=== PATIENT | male | born 1965 | race Caucasian/White ===

== ENCOUNTER 2021-04-23 20:58 | Inpatient (IN) | payer OTHER ==
[~2021-04-23] VITALS: Ht 175.3 cm; Wt 66.0 kg
[2021-04-23 22:26] LABS: HEMOGLOBIN 15.9 gm/dL (14.0-18.0); MCHC 35.2 g/dL (28.0-37.0); MCV 87.9 fL (80.0-100.0); RBC 5.12 mil/uL (4.50-6.00); WBC 8.5 thou/uL (4.0-11.0)
[2021-04-23 22:37] LABS: CHOLESTEROL 143 mg/dL (<200); HDL CHOLESTEROL 52 mg/dL (>40); LDL CHOLESTEROL 74 mg/dL (<100); TC:HDL 2.8 Ratio (Not establshd); TRIGLYCERIDE 86 mg/dL (<150); VLDL 17 mg/dL (<40)
[2021-04-23 22:44] LABS: SERUM ASSESSMENT Clear
[2021-04-23 23:04] LABS: APTT 70.9 Seconds (24.5-32.8); INR 1.03; PROTIME 11.2 Seconds (10.5-12.1)
[2021-04-24] VITALS (14 sets, daily range): BP systolic 101–133; BP diastolic 65–96
[2021-04-24 02:56] LABS: HEMATOCRIT 44.9 % (42.0-52.0); HEMOGLOBIN 15.2 gm/dL (14.0-18.0); MCH 30.2 pg (26.0-34.0); MCHC 33.8 g/dL (28.0-37.0); MCV 89.4 fL (80.0-100.0); RBC 5.02 mil/uL (4.50-6.00); RDW 13.2 % (10.5-14.5); WBC 6.7 thou/uL (4.0-11.0)
[2021-04-24 03:16] LABS: CALCIUM 8.4 mg/dL (8.5-10.1); CREATININE 1.1 mg/dL (0.7-1.3); POTASSIUM 3.2 mmol/L (3.5-5.1)
--- NOTE | 2021-04-24 04:39 | NUR ---
PT ADMITTED TO [id number] FROM [facility], ORIENTED TO ROOM, UNIT, VSS, STATES CP IS INTERMITTENT, EKG DONE AND POSTED IN CHART, LABS DRAWN AND HEPARIN GTT STARTED, NPO FOR POSSIBLE STRESS TEST IN AM, REMINDED PT TO CALL IF CP RETURNED, WILL CON'T TO MONITOR PER PPOC.
[2021-04-24] MEDS ORDERED: ASA81BEC PO (07:32)
[2021-04-24] MEDS ORDERED: ATORVASTATIN CA80 MG PO (07:33)
[2021-04-24] MEDS ORDERED: CARVEDILOL12.5 MG PO (07:34)
[2021-04-24] MEDS ORDERED: PLAVIX 75 MG TA75 MG PO (07:34)
--- NOTE | 2021-04-24 08:32 | EKG ---
[address] [address] ELECTROCARDIOGRAM REPORT Name: JONATHAN ARCHER Room #: 200-I ADM IN M.R.#: [id number] Admission: 04/23/21 Attend Phys: Crow Rodriguez MD Discharge: Date of : 69 Report #: [id number] [facility] Test Date: 2021-04-23 Test Time: 22:03:36 Pat Name: JONATHAN ARCHER Department: Room: 200 I Gender: Director Of Anesthesia Services: SHOBHA : 1965 Requested By: Mena Sandoval Order Number: [id number] MD: David Simpson Measurements Intervals [place] Rate: 60 P: 15 [place]: 157 QRS: 54 QRSD: 86 T: 41 QT: 425 QTc: 425 Interpretive Statements Sinus rhythm no significant abnormality no previous ECG available for comparison Electronically Signed On 04-24-2021 8:32:14 ARMHOLE BASTER JUMPBASTING by David Simpson [email or web address] <ELECTRONICALLY SIGNED> By: David Simpson MD, [facility] 04/24/21 0832 2203 2203 David Simpson MD, FAC /EPI
--- NOTE | 2021-04-24 08:37 | EKG ---
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
--- NOTE | 2021-04-24 09:59 | NUR ---
Assumed care of pt this AM. Pt is NPO for testing today & possible cardiac cath. Pt requiring [employer] manager code for consent & education. This nurse used manager code & pt asked that this nurse call his sister, Tiny Friend, & sister in laws Larry & Lesley to inform of situation. Pt states that he won't sign consent until he speaks to them. chemical lab supervisor notified. Pt is A&O x4, on RA, SB/SR on the monitor. Pt denying any current chest pain. Pt on heparin gtt w/ morning APTT therapeutic. No changes made. All of pts sisters notified. Pt sisterLesley, nurse @ [facility]. All sisters in agreeance w/ cardiac cath. No other needs at this time. Frequent rounding in place.
--- NOTE | 2021-04-24 14:23 | CATHLAB ---
[facility] [address] [place] [address] INVASIVE PROCEDURE REPORT Name: JONATHAN ARCHER Room #: 200-I ADM IN M.R.#: [id number] Admission: 04/23/21 Attend Phys: Crow Rodriguez MD Discharge: Date of : 69 Report #: [id number] THIS REPORT FOR: cc: FAM - Family physician unknown FAM - Family physician unknown Dax Hilario MD ~ APPROVED REPORT Study performed: 04/24/2021 10:11:08 Patient Details Patient Status: In-Patient Room #: 200 The patient is a 55 year-old male Event Personnel Dax Hilario Graduate Nurse, Cristy Chamroro RTR Monitor, Violeta José RTR Scrub, Carrington Sorto RN dietician Performed Art Access - R femoral artery* Left Heart Cath w/or w/o Coronaries 5751716 LHC Hemostasis w/ Mynx 27282 Initial Mod Sed Same Phys/QHP Gr5y 809354 36016 Mod Sed Same Phys/QHP Ea 563027 AMY Place w/wo Plasty Single NUSRAT 741310 PTCA Single Vessel OM [id number] PCISINGLE Indication Non-STEMI , Dyspnea, Chest pain Risk Factors Hypercholesterolemia, Coronary Artery DiseaseHypertension, Tobacco History () Previous Procedures/Diagnoses Previous PCI, Previous NV Procedure Narrative The was infiltrated with 1% Lidocaine subcutaneous anesthesia. A PINNACLE 4FR Sheath #[id number] sheath was inserted into the RFA^. Coronary angiography was performed using coronary diagnostic catheters. The right coronary system was accessed and visualized with a JR4 catheter. The left coronary system was accessed and visualized with a JL5 catheter. The left ventricle was accessed and visualized with a PIGTAIL catheter. Left ventriculogram was performed in 30 degree projection. Pre-demployment femoral angiogram was performed . [facility] [address] [place] [address] INVASIVE PROCEDURE REPORT Name: JONATHAN ARCHER Room #: 200-I [facility].#: [id number] Admission: 04/23/21 Attend Phys: Crow Rodriguez MD Discharge: Date of : 69 Report #: [id number] Closure device was deployed with a 6 Fr MYNXGRIP 6/7F #[id number]. The patient tolerated the procedure well and there were no complications associated with the procedure. There was no hematoma. Intraoperative Conscious Sedation Sedation start time: 1050 Case end Time: 1157 Fentanyl 50 mcg Versed 1 mg Fluoro Time: 14.48 minutes Dose: DAP 1158.90 cGycm2 1655 mGy Contrast Type and Amount: Omnipaque 270 ml Coronary Angiography The patient's coronary anatomy is right dominant. Diagnostic Cath Left Main The left main artery is a large-caliber vessel, patent with no flow-limiting lesions. The LAD is a moderate-sized caliber vessel, traverses the anterior wall and wraps around the apex. LAD There is mild to moderate diffuse disease in the proximal segment, 30 to 40%. Diagonal 1 This is a small caliber vessel, with a moderate ostial stenosis. Diagonal 2 This is a small to modest sized caliber vessel, patent with no flow-limiting lesions. Circumflex The left circumflex artery is a moderate-sized caliber vessel with mild disease in the proximal and distal segments, 30%. OM1 This is a small to moderate-sized caliber vessel with a patent stent in the proximal/mid segment with mild restenosis. Just before the stent, there is a subtotal occlusion of the proximal segment. OM2 This is a moderate-sized caliber vessel, patent with no flow-limiting lesions. Right Coronary The RCA is a dominant vessel. There are patent stents in the proximal and distal segments with minimal restenosis. R PDA This is a small to moderate-sized caliber vessel, patent with no flow-limiting lesions. RPLV This is a small to moderate-sized caliber vessel with a severe occlusion of the proximal segment, 90%. Left Ventriculography The left ventricle is normal in size with normal contractility. The left ventricular ejection fraction is estimated to be 50-55%. Left ventricular wall motion abnormalities [place] [address] INVASIVE PROCEDURE REPORT Name: JONATHAN ARCHER Taty Room #: 200-I ADM IN M.R.#: [id number] Admission: 04/23/21 Attend Phys: Crow Rodriguez MD Discharge: Date of : 69 Report #: [id number] hypokinesis of the distal inferior segment. Hemodynamics The left ventricular pressure is 137/2 mmHg with a mean of mmHg. The left ventricular end diastolic pressure is 13 mmHg. PCI Technique Lesion Percutaneous coronary intervention was performed on the first right posterior lateral segment. The lesion stenosis prior to intervention was 95% with EUGENE 3 flow. A VISTA 6FR JR 4 #[id number] Guide Catheter was used to engage the ostium. A Luge Wire .014 x 182CM #[id number] Interventional Guidewire was used to cross the lesion. BALLOON DILATION A Balloon catheter TREK OTW 2.25 X 12 #[id number] was inserted and inflated up to 8.00atm for 13seconds. Additional Inflation: 8.00atm for 9seconds. STENT DEPLOYMENT A drug-eluting stent RESOLUTE DAYRON OTW 2.25 X 18 #[id number] was inserted and inflated up to 12.00atm for 16seconds. Final angiography reveals 0 % stenosis with EUGENE 3 flow. PCI Technique Lesion 2 Percutaneous Coronary Intervention was performed on the first obtuse marginal branch segment. The lesion stenosis prior to intervention was 99% with EUGENE 2 flow. A VISTA 6FR XB 4 #[id number] Guide Catheter was used to engage the ostium. A Luge Wire .014 x 182CM #[id number] Interventional Guidewire was used to cross the lesion. Balloon Dilation A Balloon catheter MINI TREK OTW 2.0 X 12 #[id number] was inserted and inflated up to 8.00atm for 10seconds. Additional Inflation: 12.00atm for 24seconds. Post Stent Deployment Balloon Dilation A Balloon catheter Euphora NC RX 2.25 x 12 #[id number] was inserted and inflated up to 6.00atm for 9seconds. Additional Inflation: 14.00atm for 23seconds. Final angiography reveals 30 % stenosis with EUGENE 3 flow. Conclusion 1. PCI performed with placement of a drug-eluting stent into the [facility] [address] [place] [address] INVASIVE PROCEDURE REPORT Name: JONATHAN ARCHER Room #: 200-I ADM IN M.R.#: [id number] Admission: 04/23/21 Attend Phys: Crow Rodriguez MD Discharge: Date of : 69 Report #: [id number] severe stenosis in the proximal segment of the right posterior lateral branch. 2. PCI performed with balloon angioplasty involving the subtotal occlusion in the ostial/proximal segment of the first obtuse marginal artery, a small to moderate-sized caliber vessel. 3. There are patent stents in the proximal and distal segments of the RCA. 4. There is mild to moderate diffuse disease in the proximal LAD. 5. There is normal LV systolic function with subtle hypokinesis of the distal inferior segment. 6. Recommend dual antiplatelet therapy and aggressive risk factor management. <ELECTRONICALLY SIGNED> By: Dax Hilario MD 04/24/21 1422 21 142 Dax Hilario MD /INF
--- NOTE | 2021-04-24 14:49 | EKG ---
[place] [address] [facility] [place] [address] ELECTROCARDIOGRAM REPORT Name: JONATHAN ARCHER Room #: 200-I ADM IN M.R.#: [id number] Admission: 04/23/21 Attend Phys: Crow Rodriguez MD Discharge: Date of : 69 Report #: [id number] [facility] Test Date: 2021-04-24 Test Time: 13:07:36 Pat Name: JONATHAN ARCHER Department: Room: 200 I Gender: M Striker Out: : 1965 Requested By: Dax Hilario Order Number: [id number] : Rodney Brown Measurements Intervals [place] Rate: 64 P: -3 [place]: 135 QRS: 54 QRSD: 82 T: 72 QT: 417 QTc: 431 Interpretive Statements Sinus rhythm ST elev, probable normal early repol pattern Compared to ECG 04/24/2021 07:32:17 ST (T wave) deviation now present Electronically Signed On 04-24-2021 14:49:28 COFFEE SUPERVISOR by Rodney Brown [email or web address] <ELECTRONICALLY SIGNED> By: Rodney Brown MD, [facility] 04/24/21 1449 06 06 Rodney Brown MD, FACC /EPI
--- NOTE | 2021-04-24 15:30 | 2DMMODE ---
[facility] [place] [address] [place] [address] 2 D/M-MODE ECHOCARDIOGRAM Name: JONATHAN ARCHER Room #: 200-I ADM IN M.R.#: [id number] Admission: 04/23/21 Attend Phys: Crow Rodriguez MD Discharge: Date of : 69 Report #: [id number] THIS REPORT FOR: cc: FAM - Family physician unknown FAM - Family physician unknown Rodney Brown MD [facility] ~ APPROVED REPORT Study performed: 04/24/2021 14:53:15 EXAM: Comprehensive 2D, Doppler, and color-flow Echocardiogram Patient Location: Bedside Room #: 200 Status: routine BSA: 1.80 HR: 64 bpm BP: 116/81 mmHg Rhythm: NSR Other Information Study Quality: Good Indications Chest Pain 2D Dimensions RVDd: 33.98 mm IVSd: 11.21 (7-11mm) LVOT Diam: 22.84 (18-24mm) LVDd: 40.33 mm PWd: 10.59 (7-11mm) Ascending Ao: 29.15 (22-36mm) LVDs: 28.83 (25-40mm) Left Atrium: 30.34 (27-40mm) Aortic Root: 25.10 mm IVC: 14.00 mm Volumes Left Atrial Volume (Systole) Single Plane 4CH: 13.65 mL Single Plane 2CH: 22.71 mL LA ESV Index: 12.00 mL/m2 Aortic Valve AoV Peak Chet.: 1.86 m/s AO Peak Gr.: 13.87 mmHg LVOT Max P.50 mmHg LVOT Max V: 1.06 m/s RAÚL Vmax: 2.33 cm2 [facility] [address] [address] 2 D/M-MODE ECHOCARDIOGRAM Name: JONATHAN ARCHER Room #: 200-I [facility]#: [id number] Admission: 04/23/21 Attend Phys: Crow Rodriguez MD Discharge: Date of : 69 Report #: [id number] Mitral Valve E/A Ratio: 0.9 MV Decel. Time: 214.42 ms MV E Max Chet.: 0.57 m/s MV A Chet.: 0.66 m/s MV PHT: 62.18 ms IVRT: 152.25 ms Pulmonary Valve PV Peak Chet.: 0.99 m/s PV Peak Gr.: 3.92 mmHg Pulmonary Vein P Vein S: 0.40 m/s P Vein A: 0.21 m/s P Vein D: 0.32 m/s P Vein A Dur.: 129.2 msec P Vein S/D Ratio: 1.25 Left Ventricle The left ventricle is normal size. There is normal LV segmental wall motion. There is normal left ventricular wall thickness. Left ventricular systolic function is normal. The left ventricular ejection fraction is within the normal range. LVEF is 55-60%. Grade I - abnormal relaxation pattern. Right Ventricle The right ventricle is normal size. The right ventricular systolic function is normal. Atria The left atrium size is normal. The right atrium size is normal. Aortic Valve The aortic valve is normal in structure. No aortic regurgitation is present. There is no aortic valvular stenosis. Mitral Valve The mitral valve is normal in structure. There is no mitral valve regurgitation noted. No evidence of mitral valve stenosis. Tricuspid Valve The tricuspid valve is normal in structure. There is no tricuspid valve regurgitation noted. Pulmonic Valve The pulmonary valve is normal in structure. There is no pulmonic [facility] [address] [place] [address] 2 D/M-MODE ECHOCARDIOGRAM Name: JONATHAN ARCHER Room #: 200-I ADM IN .R.#: [id number] Admission: 04/23/21 Attend Phys: Crow Rodriguez MD Discharge: Date of : 69 Report #: [id number] valvular regurgitation. Great Vessels The aortic root is normal in size. IVC is normal in size and collapses >50% with inspiration. Pericardium There is no pericardial effusion. <Conclusion> Normal left ventricle size/wall thickness central ejection fraction of 55-60% Grade 1 diastolic dysfunction Normal right ventricular size/function Normal atrial size Normal aortic/mitral valve structure and function No tricuspid valve insufficiency No pericardial effusion Normal aortic root size. <ELECTRONICALLY SIGNED> By: Rodney Brown MD, FACC 04/24/21 1530 1530 1530 Rodney Brown MD, [facility] /INF
[2021-04-24 18:42] LABS: MAGNESIUM 2.3 mg/dL (1.8-2.4); POTASSIUM 4.2 mmol/L (3.5-5.1)
[2021-04-25 04:25] VITALS: BP 124/79
[2021-04-25 05:19] LABS: HEMATOCRIT 44.9 % (42.0-52.0); HEMOGLOBIN 15.4 gm/dL (14.0-18.0); MCH 30.5 pg (26.0-34.0); MCHC 34.2 g/dL (28.0-37.0); MCV 89.1 fL (80.0-100.0); RBC 5.04 mil/uL (4.50-6.00); RDW 13.1 % (10.5-14.5); WBC 7.3 thou/uL (4.0-11.0)
[2021-04-25 05:45] LABS: ALBUMIN 3.6 g/dL (3.4-5.0); CALCIUM 8.1 mg/dL (8.5-10.1); CREATININE 1.1 mg/dL (0.7-1.3); POTASSIUM 3.9 mmol/L (3.5-5.1); TOTAL BILIRUBIN 0.5 mg/dL (0.2-1.0); TOTAL PROTEIN 6.7 g/dL (6.4-8.2)
--- NOTE | 2021-04-25 08:21 | EKG ---
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
--- NOTE | 2021-04-25 09:29 | NUR ---
Assumed care of pt this AM. Pt is A&O x4, SR w/ PVCs on the monitor, on RA. Pt denies any chest pain. Pt up ad maria esther in the room. Plan to possibly discharge home today. Flu vaccine given. Fall education performed.
[2021-04-25 09:54] VITALS: BP 114/79
[2021-04-25 10:50] VITALS: BP 114/79
[2021-04-25 12:04] VITALS: BP 125/79
== END 2021-04-25 16:05 | disposition home or self-care (01) | DRG 247 ==
LOC: 2N 20:58
PROVIDERS: Internal Medicine Cardiovascular Disease; Nurse Practitioner Family; ADMIT Internal Medicine; ATTEND Internal Medicine
PROC: B41F1ZZ Fluoroscopy of Right Lower Extremity Arteries using Low Osmolar Contrast (ICD-10-PCS; principal; 2021-04-24)
PROC: B2111ZZ Fluoroscopy of Multiple Coronary Arteries using Low Osmolar Contrast (ICD-10-PCS; principal; 2021-04-24)
PROC: 02703ZZ Dilation of Coronary Artery, One Artery, Percutaneous Approach (ICD-10-PCS; principal; 2021-04-24)
PROC: B2151ZZ Fluoroscopy of Left Heart using Low Osmolar Contrast (ICD-10-PCS; principal; 2021-04-24)
PROC: 027034Z Dilation of Coronary Artery, One Artery with Drug-eluting Intraluminal Device, Percutaneous Approach (ICD-10-PCS; principal; 2021-04-24)
PROC: 4A023N7 Measurement of Cardiac Sampling and Pressure, Left Heart, Percutaneous Approach (ICD-10-PCS; principal; 2021-04-24)
DX: I21.4 Non-ST elevation (NSTEMI) myocardial infarction (principal); I25.10 Atherosclerotic heart disease of native coronary artery without angina pectoris; E78.5 Hyperlipidemia, unspecified; I10 Essential (primary) hypertension; R73.9 Hyperglycemia, unspecified; Z60.2 Problems related to living alone; Z23 Encounter for immunization; I25.2 Old myocardial infarction; Z82.49 Family history of ischemic heart disease and other diseases of the circulatory system; Z71.6 Tobacco abuse counseling
CPT/HCPCS: 10081